=== PATIENT | male | born 1950 | race Caucasian/White ===

== ENCOUNTER 2018-09-23 09:06 | Day surgery (SDC) ==
[2018-09-23] MEDS: BETADINE OPTH PREP OP PRN ×2 (10:05→10:35)
[2018-09-23] MEDS: TETRACAINE 0.5% UNIT-DOSE OP PRN ×2 (10:05→10:35)
[2018-09-23] MEDS: CYCLOGYL 2% OPTH OP PRN ×3 (10:06→10:16)
[2018-09-23] MEDS ORDERED: BRIMONIDINE TARTRATE 0.2% OPTH SOL OP PRN (10:16)
[2018-09-23] MEDS ORDERED: BSS WITH EPINEPHRINE OP ONE (10:16)
[2018-09-23] MEDS ORDERED: ZOFRAN 4 MG/2 ML IVP ONE (10:16)
[2018-09-23] MEDS ORDERED: LIDOCAINE 1%/PHENYLEPHRINE 1.5% BSS (SURGERY) INTRAOCULA ONE (10:16)
[2018-09-23] MEDS ORDERED: LIDOCAINE 1% 20 ML MDV ID STA (10:16)
[2018-09-23] MEDS ORDERED: DEX-MOXI-KETOR OPTH INJ 1/0.5/0.4 MG/ML IO ONE (10:16)
[2018-09-23] MEDS ORDERED: ZOFRAN 4 MG/2 ML ONE (10:45)
[2018-09-23] MEDS ORDERED: VERSED ONE (10:45)
[2018-09-23] MEDS ORDERED: SUBLIMAZE ONE (10:45)
[2018-09-23 13:31] VITALS: TEMP 98.1
[2018-09-24 13:09] VITALS: BP 121/78
== END 2018-09-23 11:45 | disposition home or self-care (01) ==
LOC: SURG 09:06
PROVIDERS: ATTEND Ophthalmology
DX: H25.811 Combined forms of age-related cataract, right eye (principal)

== ENCOUNTER 2018-09-30 08:08 | Day surgery (SDC) ==
[2018-09-30] MEDS: BETADINE OPTH PREP OP PRN ×2 (09:05→09:50)
[2018-09-30] MEDS: TETRACAINE 0.5% UNIT-DOSE OP PRN ×3 (09:05→10:10)
[2018-09-30] MEDS: CYCLOGYL 2% OPTH OP PRN ×3 (09:06→09:16)
[2018-09-30] MEDS ORDERED: ZOFRAN 4 MG/2 ML IVP ONE (09:16)
[2018-09-30] MEDS ORDERED: BRIMONIDINE TARTRATE 0.2% OPTH SOL OP PRN (09:16)
[2018-09-30] MEDS ORDERED: LIDOCAINE 1% 20 ML MDV ID STA (09:16)
[2018-09-30 09:25] VITALS: TEMP 97.6
[2018-09-30] MEDS ORDERED: ZOFRAN 4 MG/2 ML ONE (10:00)
[2018-09-30] MEDS ORDERED: SUBLIMAZE ONE (10:00)
[2018-09-30] MEDS ORDERED: VERSED ONE (10:00)
[2018-09-30] MEDS: LIDOCAINE 1%/PHENYLEPHRINE 1.5% BSS (SURGERY) INTRAOCULA ONE ×2 (10:02→10:10)
[2018-09-30] MEDS: DEX-MOXI-KETOR OPTH INJ 1/0.5/0.4 MG/ML IO ONE ×2 (10:02→10:10)
[2018-09-30] MEDS: BSS WITH EPINEPHRINE OP ONE ×2 (10:02→10:10)
[2018-09-30 14:22] VITALS: BP 128/67
== END 2018-09-30 11:10 | disposition home or self-care (01) ==
LOC: SURG 08:08
PROVIDERS: ATTEND Ophthalmology
DX: H25.812 Combined forms of age-related cataract, left eye (principal)